=== PATIENT | male | born 1990 | race African-American/Black ===

== ENCOUNTER 2017-04-20 22:28 | Emergency (ER) | payer OTHER ==
[~2017-04-20] VITALS: Ht 185.4 cm; Wt 107.5 kg
[2017-04-20 22:31] VITALS: Ht 185.4 cm; Wt 107.5 kg
[2017-04-21 00:29] VITALS: BP 119/71
== END 2017-04-21 00:29 | disposition home or self-care (01) ==
LOC: ED 22:28
DX: M54.5 Low back pain (principal)

== ENCOUNTER 2017-05-16 15:36 | Emergency (ER) | payer OTHER ==
[~2017-05-16] VITALS: Ht 185.4 cm; Wt 108.0 kg
[2017-05-16 15:53] VITALS: BP 139/86; Ht 185.4 cm; Wt 108.0 kg
== END 2017-05-16 17:27 | disposition home or self-care (01) ==
LOC: ED 15:36
DX: J06.9 Acute upper respiratory infection, unspecified (principal); B34.9 Viral infection, unspecified; G43.909 Migraine, unspecified, not intractable, without status migrainosus

== ENCOUNTER 2017-09-14 16:48 | Emergency (ER) | payer OTHER ==
[~2017-09-14] VITALS: Ht 185.4 cm; Wt 108.9 kg
[2017-09-14 16:52] VITALS: BP 136/74; Ht 185.4 cm; Wt 108.9 kg
== END 2017-09-14 18:27 | disposition home or self-care (01) ==
LOC: ED 16:48
DX: R51 Headache (principal); R42 Dizziness and giddiness
CPT/HCPCS: J1200; J2765

== ENCOUNTER 2017-09-30 22:29 | Emergency (ER) | payer OTHER ==
[~2017-09-30] VITALS: Ht 185.4 cm; Wt 108.9 kg
[2017-09-30 22:40] VITALS: Ht 185.4 cm; Wt 108.9 kg
[2017-10-01 00:38] VITALS: BP 126/78
== END 2017-09-30 23:50 | disposition home or self-care (01) ==
LOC: ED 22:29
DX: G89.29 Other chronic pain (principal); M25.562 Pain in left knee; G43.909 Migraine, unspecified, not intractable, without status migrainosus; Z88.6 Allergy status to analgesic agent

== ENCOUNTER 2018-03-07 18:11 | Emergency (ER) | payer OTHER ==
[~2018-03-07] VITALS: Ht 185.4 cm; Wt 105.2 kg
[2018-03-07 18:28] VITALS: Ht 185.4 cm; Wt 105.2 kg
[2018-03-07 20:43] VITALS: BP 140/72
== END 2018-03-07 20:43 | disposition home or self-care (01) ==
LOC: ED 18:11
DX: S13.4XXA Sprain of ligaments of cervical spine, initial encounter (principal); M54.5 Low back pain; M25.562 Pain in left knee; G43.909 Migraine, unspecified, not intractable, without status migrainosus; Z88.6 Allergy status to analgesic agent; V49.9XXA Car occupant (driver) (passenger) injured in unspecified traffic accident, initial encounter; Y93.I9 Activity, other involving external motion; Y92.413 State road as the place of occurrence of the external cause; Y99.8 Other external cause status
CPT/HCPCS: Q0092

== ENCOUNTER 2019-07-13 13:20 | Emergency (ER) | payer OTHER ==
[~2019-07-13] VITALS: Ht 185.4 cm; Wt 107.5 kg
[2019-07-13 13:25] VITALS: BP 149/84; Ht 185.4 cm; Wt 107.5 kg
== END 2019-07-13 14:04 | disposition home or self-care (01) ==
LOC: ED 13:20
DX: B34.9 Viral infection, unspecified (principal); G43.909 Migraine, unspecified, not intractable, without status migrainosus

== ENCOUNTER 2019-12-22 07:55 | Emergency (ER) | payer OTHER ==
[~2019-12-22] VITALS: Ht 185.4 cm; Wt 111.1 kg
[2019-12-22 08:07] VITALS: Ht 185.4 cm; Wt 111.1 kg
[2019-12-22 09:30] VITALS: BP 137/93
== END 2019-12-22 09:30 | disposition home or self-care (01) ==
LOC: ED 07:55
DX: S93.402A Sprain of unspecified ligament of left ankle, initial encounter (principal); G43.909 Migraine, unspecified, not intractable, without status migrainosus; X58.XXXA Exposure to other specified factors, initial encounter; Y93.89 Activity, other specified; Y92.89 Other specified places as the place of occurrence of the external cause; Y99.8 Other external cause status
CPT/HCPCS: Q0092